=== PATIENT | female | born 1985 | race Caucasian/White ===

== ENCOUNTER 2018-01-14 21:16 | Emergency (ER) | payer OTHER ==
[~2018-01-14] VITALS: Ht 165.1 cm; Wt 56.7 kg
--- NOTE | 2018-01-14 23:06 | RADIOLOGY REPORT ---
EXAMINATIONS: WRIST 4 VIEWS, RIGHT AND RIGHT FOREARM 2 VIEWS CLINICAL INFORMATION: Pain following injury. COMPARISON: None. TECHNIQUE: AP, lateral, oblique, scaphoid views of the right wrist are provided. AP and lateral views of the right forearm are provided. FINDINGS: There are no fractures or dislocations. There is no displacement of the pronator fat pad. The proximal carpal row is intact. There is no elbow joint effusion. IMPRESSION: Unremarkable right wrist and forearm radiographs.
--- NOTE | 2018-01-14 23:40 | ED UPPER/LOWER EXTREMITY COMPL ---
History of Present Illness General Chief Complaint: Hand or Wrist Injury Stated Complaint: PER PT STRESSED OUT AND SLAMMED WRIST ON FLOOR Source: patient Exam Limitations: no limitations Vital Signs & Intake/Output Vital Signs & Intake/Output Vital Signs Date Time Temp Pulse Resp B/P B/P Pulse O2 O2 Flow FiO2 Mean Ox Delivery Rate 01/14 2359 97.6 71 18 111/79 98 Room Air 01/14 2139 97.8 66 16 104/72 97 ED Intake and Output 01/15 0000 01/14 1200 Intake Total Output Total Balance Patient 125 lb Weight Weight Reported by Patient Measurement Method Allergies Coded Allergies: No Known Allergies (01/14/18) Reconcile Medications No Known Home Medications Triage Note: PT PRESENTS TO THE ER S/P SLAMMIMG HER RIGHT ARM ON FLOOR. RIGHT ARM AND WRIST IS RED AND SWOLLEN. PER PT PAIN IS 2/10 Triage Nurses Notes Reviewed? yes Onset: Abrupt Duration: hour(s): Timing: single episode today Severity: mild, moderate Pain/Injury Location: Right: Wrist. Method of Injury: direct blow Modifying Factors: Improves With: movement. Worsens With: rest. Associated Symptoms: swelling HPI: 32 yo woman in anger, pt slammed right wrist on floor a few hours ago. She notes pain, swelling, worse with movement. She is able to move her wrist and fingers without problem. She is otherwise well. Past History Travel History Traveled to [place] past 21 day No Medical History Any Pertinent Medical History? see below for history Surgical History Surgical History: none Family History Hx Contributory? No Review of Systems Review of Systems Constitutional: Reports: no symptoms. EENTM: Reports: no symptoms. Respiratory: Reports: no symptoms. Cardiovascular: Reports: no symptoms. Gastrointestinal/Abdominal: Reports: no symptoms. Genitourinary: Reports: no symptoms. Musculoskeletal: Reports: no symptoms. Skin: Reports: no symptoms. Neurological/Psychological: Reports: no symptoms. Hematologic/Endocrine: Reports: no symptoms. Immunological: Reports: no symptoms. All Other Systems: Reviewed and Negative Physical Exam Physical Exam General Appearance: well developed/nourished, mild distress Head: atraumatic, normal appearance Eyes: Bilateral: normal appearance. Ears, Nose, Throat: normal pharynx Neck: normal inspection Hand Right: diffuse right wrist tenderness to palpation. mild swelling. ROM is normal. light touch and strength is also normal. Progress Differential Diagnosis: contusion, dislocation, fracture, sprain Plan of Care: Orders Procedure Date/time Status URINE 01/14 2143 Complete Laboratory Tests 01/14/182144: Urine Test NEGATIVE Diagnostic Imaging: Viewed by Me: Radiology Read. Discussed w/RAD: Radiology Read. Radiology Impression: PATIENT: WALT CONDON PRESENT AGE: 32 PATIENT ACCOUNT NO: [id number] : 85 LOCATION: [facility] ORDERING PHYSICIAN: Estiven Santos MD SERVICE DATE: 01/14/18 EXAM TYPE: RAD - XRY-FOREARM, RIGHT; XRY-WRIST COMPLETE-RIGHT EXAMINATIONS: WRIST 4 VIEWS, RIGHT AND RIGHT FOREARM 2 VIEWS CLINICAL INFORMATION: Pain following injury. COMPARISON: None. TECHNIQUE: AP, lateral, oblique, scaphoid views of the right wrist are provided. AP and lateral views of the right forearm are provided. FINDINGS: There are no fractures or dislocations. There is no displacement of the pronator fat pad. The proximal carpal row is intact. There is no elbow joint effusion. IMPRESSION: Unremarkable right wrist and forearm radiographs. DICTATED BY: Daniele Pollard MD DATE/TIME DICTATED:01/14/182300 FOOT GATHERER: CLARE DATE/TIME TRANSCRIBED:01/14/182300 CONFIDENTIAL, DO NOT COPY WITHOUT APPROPRIATE AUTHORIZATION. <Electronically signed in Other Vendor System> SIGNED BY: Daniele Pollard MD 01/14/182305 Departure Departure Disposition: HOME OR SELF CARE Condition: Stable Clinical Impression Primary Impression: Contusion Referrals: Sana Gill MD (PCP/Family) Departure Forms: Customer Survey General Discharge Information Prescriptions: Current Visit Scripts No Known Home Medications
[2018-01-14 23:59] VITALS: BP 111/79
== END 2018-01-15 ==
LOC: ERH 21:16
DX: S60.211A Contusion of right wrist, initial encounter (principal); W22.8XXA Striking against or struck by other objects, initial encounter; Y92.9 Unspecified place or not applicable; Y93.9 Activity, unspecified
CPT/HCPCS: 73090-RT; 73110-RT; 81025